=== PATIENT | female | born 1990 | race Two or more races ===

== ENCOUNTER 2025-01-07 12:54 | Emergency (ER) | payer SELFPAY ==
[2025-01-07 13:07] VITALS: BP 116/67; PULSE 79; RESP 18; TEMP 36.8; O2SAT 100
== END 2025-01-07 14:53 | disposition left against medical advice (07) ==
LOC: ANHED 14:19
DX: R10.9 Unspecified abdominal pain (principal)
CPT/HCPCS: 99199

== ENCOUNTER 2025-02-01 15:56 | Outpatient (CLI) | payer BC, SELFPAY ==
[2025-02-01 16:56] LABS: Hematocrit 22.4 % (37.0-47.0); Immature Granulocyte Percent A 0.4 % (0-0.5); Lymphocytes Absolute Auto 2.32 K/mm3 (0.9-3.2); Mean Corpuscular HGB Conc 25.9 g/dl (32-36); Mean Corpuscular Hemoglobin 17.1 pg (26-34); Mean Corpuscular Volume 65.9 fl (80-100); Nucleated Red Blood Cells Absolute Auto 0.000 K/mm3 (0.0-0.012); Nucleated Red Blood Cells Perc 0.0 % (0.0-0.2); Platelet Count Result 181 k/mm3 (150-375); Red Blood Count 3.40 M/mm3 (4.2-5.4); White Blood Count 5.4 K/mm3 (4.5-10.0)
--- OUTSIDE RECORDS SUMMARY | 2025-02-01 17:37 | XMS_ITS | Clinical Summary ---
Author Organization [address] Address [address] [place] [phone] Care Team Providers Care Night Filler Name Role Phone Unknown, Notinfile Primary Care Provider Unavail able Allergies No known active allergies Medications triamcinolone (KENALOG) 0.1 % creamIndication s:Umbilicus discharge Apply to affected area 1-2 times daily as needed. Avoid face and groin. 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 Gender Identity Not on file Sexual Orientation Not on file Last Filed Vital Signs Vital Sign Reading Time Taken Comments Blood Pressure 122/82 06/21/2023 12:43 PM EMBOSSING MACHINE TENDER Pulse 90 06/21/2023 12:43 PM EMBOSSING MACHINE TENDER Temperature 37 C (98.6 F) 06/21/2023 12:43 PM EMBOSSING MACHINE TENDER Respiratory Rate 22 06/21/2023 12:43 PM EMBOSSING MACHINE TENDER Oxygen Saturation 99% 06/21/2023 12:43 PM EMBOSSING MACHINE TENDER Inhaled Oxygen Concentration - - Weight 93.9 kg (207 lb) 06/21/2023 12:43 PM EMBOSSING MACHINE TENDER Height 167.6 cm (5' 6) 06/21/2023 12:43 PM EMBOSSING MACHINE TENDER Body Mass Index 33.41 06/21/2023 12:43 PM EMBOSSING MACHINE TENDER Plan of Treatment Health Maintenance Due Date Last Done Comments Cervical Cancer Screening 1990 Depression Screening 1990 Hepatitis C Screening 1990 DTaP/Tdap/Td Vaccine (1 - Tdap) 2001 Varicella Vaccines (1 of 2 - 13+ 2-dose series) 2003 Regular Well Visit/Exam 18-64 02/12/2008 HPV Vaccines (1 - 3-dose SCD M series) 2017 Influenza Vaccine (#1) 2024 Hepatitis B Screening Completed 02/07/2002 Pneumococcal vaccine <65 Aged Out No longer eligible based on patient's age to complete this topic Insurance [employer] Care Teams Night Filler Relationship Specialty Start Date End Date Unknown, Notinfile PCP - General 06/21/23
[2025-02-01 17:40] LABS: Hemoglobin 5.8 g/dL (12.0-15.0)
[2025-02-01 17:42] LABS: Schistocytes None Seen
[2025-02-01 17:43] LABS: Anisocytosis 2+; Hypochromasia 2+; Microcytosis 1+ (NORMAL)
[2025-02-01 17:44] LABS: Band Neutrophils Percent 0 % (0-6); Iron 19 ug/dL (37-170)
[2025-02-01 17:53] LABS: Percent Iron Saturation 3 % (20-50)
== END 2025-02-01 15:57 | disposition home or self-care (01) ==
LOC: ANHLAB 15:59
PROVIDERS: PCP Obstetrics & Gynecology; Visit Provider Obstetrics & Gynecology
DX: N93.9 Abnormal uterine and vaginal bleeding, unspecified (principal)
CPT/HCPCS: 36415; 83540; 83550; 85025

== ENCOUNTER 2025-02-06 13:52 | Outpatient (CLI) | payer BC, SELFPAY ==
--- NOTE | ~2025-02-06 | US_ITS ---
EXAMINATION: US pelvic complete w TV INDICATION: Uterine fibroids Comparison:No prior studies for comparison. TECHNIQUE: Multiple transabdominal and endovaginal sonographic images of the pelvis performed. FINDINGS: The uterus measures 18 x 2.7 x 9.6 cm. There are multiple uterine fibroids some of which are partially calcified. Largest fibroid measures 7.5 cm. Endometrial complex is not well delineated for measurement. There is fluid in the cervix. The right ovary measures 5.5 x 2.9 x 5.6 cm and the left ovary measures 3.2 x 1.3 x 3 cm. There are small follicles in each ovary. There is a 3.4 cm right ovarian cyst. Normal doppler signal in both ovaries. There is no free fluid in the pelvis. There are no abnormal masses seen on either side. IMPRESSION: 1. Enlarged fibroid uterus, largest discrete fibroid measures 7.5 cm. 2: Right ovarian cyst measuring 3.4 cm. Reviewed, dictated and finalized at location O.
--- OUTSIDE RECORDS SUMMARY | 2025-02-06 16:03 | XMS_ITS | Clinical Summary ---
Author Organization [facility] [address] [place] Address [address] [place] [phone] Care Team Providers Care Greenkeeper Name Role Phone Unknown, Notinfile Primary Care [...] on file Legal Sex Female 8:37 PM [employer] Gender Identity Not on file Sexual Orientation Not on file Last Filed Vital Signs Vital Sign Reading Time Taken Comments Blood Pressure 122/82 06/21/2023 12:43 PM [employer]ER Pulse 90 06/21/2023 12:43 PM [employer]ER Temperature 37 C (98.6 F) 06/21/2023 12:43 PM [employer]ICER Respiratory Rate 22 06/21/2023 12:43 PM [employer]ICER Oxygen Saturation 99% 06/21/2023 12:43 PM [employer]ICER Inhaled Oxygen Concentration - - Weight 93.9 kg (207 lb) 06/21/2023 12:43 PM [employer] OFFICER Height 167.6 cm (5' 6) 06/21/2023 12:43 PM [employer] OFFICER Body Mass Index 33.41 06/21/2023 12:43 PM [employer]ICER Plan of Treatment Health Maintenance Due Date [...] patient's age to complete this topic Insurance [employer] Care Teams Greenkeeper Relationship Specialty Start Date End Date Unknown, Notinfile PCP - General 06/21/23
== END 2025-02-06 13:53 | disposition home or self-care (01) ==
PROVIDERS: Visit Provider Obstetrics & Gynecology
DX: D25.9 Leiomyoma of uterus, unspecified (principal); N83.201 Unspecified ovarian cyst, right side
CPT/HCPCS: 76830; 76856